=== PATIENT | male | born 1970 | race Hispanic/Latino ===

== ENCOUNTER 2016-10-13 03:09 | Emergency (ER) | payer OTHER ==
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
[2016-10-13 06:53] VITALS: BP 142/69
[2016-10-13] MEDS ORDERED: TORADOL ONE (06:53)
[2016-10-13] MEDS ORDERED: TYLENOL #3 PO ONE (07:02)
[2016-10-13] MEDS ORDERED: TORADOL IM ONE (07:02)
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
== END 2016-10-13 07:15 | disposition home or self-care (01) ==
LOC: ED 03:09
DX: R51 Headache (principal); M54.2 Cervicalgia; V49.49XA Driver injured in collision with other motor vehicles in traffic accident, initial encounter; X58.XXXA Exposure to other specified factors, initial encounter; Y93.9 Activity, unspecified; Y92.9 Unspecified place or not applicable; Y99.9 Unspecified external cause status
CPT/HCPCS: 70450; 72125; 96372; 99284; J1885